=== PATIENT | female | born 1955 | race Caucasian/White ===

== ENCOUNTER 2017-11-23 13:13 | Inpatient (IN) | payer SELFPAY ==
[2017-11-23] MEDS: IOHEXOL 300 MG/ML 100ML VIAL. IV (14:00)
[2017-11-23 14:26] LABS: AGAP ISTAT 17 mmol/L (6-14); BUN ISTAT 9 mg/dL (8-26); CHLORIDE ISTAT 103 mmol/L (98-110); CREATININE ISTAT 0.6 mg/dL (0.5-1.4); GLUCOSE ISTAT 185 mg/dL (70-99); HEMATOCRIT ISTAT 48 % (36-40); HEMOGLOBIN ISTAT 16.3 g/dL (12-15); ION CA ISTAT 1.08 mmol/L (1.13-1.32); POTASSIUM ISTAT 4.1 mmol/L (3.5-5.0); SODIUM ISTAT 138 mmol/L (135-145); TOT CO2 ISTAT 23 mmol/L (23-32)
[2017-11-23] MEDS: fentaNYL PF VIAL 100 MCG/2 ML VIAL IV ×3 (15:47→20:27)
[2017-11-23] MEDS ORDERED: fentaNYL PF VIAL 100 MCG/2 ML VIAL IV (16:15)
[2017-11-23] MEDS ORDERED: ONDANSETRON PF 4 MG/2 ML VIAL. IV (16:15)
[2017-11-23] MEDS ORDERED: diphenhydrAMINE HCL 25 MG CAPSULE PO (16:30)
[2017-11-23] MEDS ORDERED: NICOTINE 21MG PATCH. TD (16:30)
[2017-11-23] MEDS ORDERED: ACETAMINOPHEN 500 MG TABLET PO (16:30)
[2017-11-23] MEDS: LIDOCAINE (700MG/PATCH) PATCH. TD (17:00)
[2017-11-23 18:15] LABS: POC GLUCOSE 145 mg/dL (70-99)
[2017-11-23] MEDS ORDERED: NON FORMULARY ITEM (Albuterol Sulfate (Proair Hfa Inhaler) 1 PUFF) INH (19:45)
[2017-11-23] MEDS ORDERED: ALBUTEROL SULFATE 2.5 MG/3 ML NEBU. NEB (19:45)
[2017-11-23] MEDS: ONDANSETRON PF 4 MG/2 ML VIAL. IV (20:27)
[2017-11-23] MEDS: GABAPENTIN 300 MG CAPSULE. PO (20:35)
[2017-11-23] MEDS: DULoxetine HCL 30 MG CAPSULE.DR PO (20:36)
[2017-11-23] MEDS: oxyCODONE/APAP 5/325 1 TAB TABLET PO (20:37)
[2017-11-23] MEDS: LISINOPRIL 5 MG TABLET. PO (20:37)
[2017-11-23] MEDS: ATORVASTATIN CALCIUM 20 MG TABLET PO (20:38)
[2017-11-23] MEDS: ERGOCALCIFEROL (VITAMIN D2) 50,000 UNIT CAPSULE. PO (21:00)
[2017-11-23 21:24] LABS: POC GLUCOSE 253 mg/dL (70-99)
[2017-11-23] MEDS: CYCLOBENZAPRINE 10 MG TABLET. PO (22:00)
[2017-11-24] MEDS: fentaNYL PF VIAL 100 MCG/2 ML VIAL IV ×5 (00:01→11:16)
[2017-11-24] MEDS: oxyCODONE/APAP 5/325 1 TAB TABLET PO ×4 (02:57→17:59)
[2017-11-24] MEDS: CYCLOBENZAPRINE 10 MG TABLET. PO ×3 (05:25→20:43)
[2017-11-24 08:10] LABS: POC GLUCOSE 178 mg/dL (70-99)
[2017-11-24] MEDS: GABAPENTIN 300 MG CAPSULE. PO ×2 (08:52→17:55)
[2017-11-24] MEDS: ASPIRIN CHEWABLE 81 MG TABLET. PO (08:52)
[2017-11-24] MEDS: LIDOCAINE (700MG/PATCH) PATCH. TD (09:00)
[2017-11-24] MEDS: IBUPROFEN 600 MG TABLET. PO ×2 (11:17→17:59)
[2017-11-24 12:16] LABS: POC GLUCOSE 162 mg/dL (70-99)
[2017-11-24 17:22] LABS: POC GLUCOSE 170 mg/dL (70-99)
[2017-11-24] MEDS ORDERED: CALCIUM CARBONATE 500 MG TAB.CHEW PO (17:30)
[2017-11-24] MEDS: DULoxetine HCL 30 MG CAPSULE.DR PO (17:55)
[2017-11-24] MEDS: ATORVASTATIN CALCIUM 20 MG TABLET PO (17:55)
[2017-11-24] MEDS: LISINOPRIL 5 MG TABLET. PO (20:44)
[2017-11-24 21:07] LABS: POC GLUCOSE 181 mg/dL (70-99)
[2017-11-25] MEDS: IBUPROFEN 600 MG TABLET. PO ×3 (03:47→19:27)
[2017-11-25] MEDS: oxyCODONE/APAP 5/325 1 TAB TABLET PO ×2 (03:48→09:16)
[2017-11-25] MEDS: CYCLOBENZAPRINE 10 MG TABLET. PO ×3 (05:39→22:11)
[2017-11-25 08:15] LABS: POC GLUCOSE 159 mg/dL (70-99)
[2017-11-25] MEDS: LIDOCAINE (700MG/PATCH) PATCH. TD (09:16)
[2017-11-25] MEDS: GABAPENTIN 300 MG CAPSULE. PO ×2 (09:17→17:27)
[2017-11-25] MEDS: ASPIRIN CHEWABLE 81 MG TABLET. PO (09:17)
[2017-11-25] MEDS ORDERED: MAGNESIUM HYDROXIDE 2,400 MG/30 ML ORAL.SUSP. PO (11:45)
[2017-11-25 11:58] LABS: POC GLUCOSE 177 mg/dL (70-99)
[2017-11-25] MEDS: POLYETHYLENE GLYCOL 3350 17 GM PACKET. PO (12:45)
[2017-11-25] MEDS: DOCUSATE SODIUM 100 MG CAPSULE. PO ×2 (12:46→21:00)
[2017-11-25] MEDS: oxyCODONE/APAP 10/325 1 TAB TABLET PO ×3 (12:46→21:00)
[2017-11-25 16:49] LABS: POC GLUCOSE 160 mg/dL (70-99)
[2017-11-25] MEDS: ATORVASTATIN CALCIUM 20 MG TABLET PO (17:27)
[2017-11-25] MEDS: DULoxetine HCL 30 MG CAPSULE.DR PO (17:27)
[2017-11-25] MEDS: LISINOPRIL 5 MG TABLET. PO (21:02)
[2017-11-26] MEDS: traMADol 50 MG TABLET PO (02:05)
[2017-11-26] MEDS: CYCLOBENZAPRINE 10 MG TABLET. PO (05:55)
[2017-11-26] MEDS: ASPIRIN CHEWABLE 81 MG TABLET. PO (09:37)
[2017-11-26] MEDS: oxyCODONE/APAP 10/325 1 TAB TABLET PO (09:37)
[2017-11-26] MEDS: IBUPROFEN 600 MG TABLET. PO (09:37)
[2017-11-26] MEDS: LIDOCAINE (700MG/PATCH) PATCH. TD (09:38)
[2017-11-26] MEDS: POLYETHYLENE GLYCOL 3350 17 GM PACKET. PO (09:38)
[2017-11-26] MEDS: DOCUSATE SODIUM 100 MG CAPSULE. PO (09:38)
[2017-11-26] MEDS: GABAPENTIN 300 MG CAPSULE. PO (09:38)
[2017-11-30] MEDS ORDERED: ERGOCALCIFEROL (VITAMIN D2) 50,000 UNIT CAPSULE. PO (09:00)
== END 2017-11-26 14:30 | disposition home or self-care (01) | DRG 552 ==
LOC: ER 13:13 → 4 NORTH 16:07
DX: S32.019A Unspecified fracture of first lumbar vertebra, initial encounter for closed fracture (principal); E11.42 Type 2 diabetes mellitus with diabetic polyneuropathy; Z68.41 Body mass index [BMI] 40.0-44.9, adult; S32.029A Unspecified fracture of second lumbar vertebra, initial encounter for closed fracture; E55.9 Vitamin D deficiency, unspecified; E66.01 Morbid (severe) obesity due to excess calories; E78.00 Pure hypercholesterolemia, unspecified; F17.210 Nicotine dependence, cigarettes, uncomplicated; I10 Essential (primary) hypertension; M81.0 Age-related osteoporosis without current pathological fracture; S33.5XXA Sprain of ligaments of lumbar spine, initial encounter; Z88.5 Allergy status to narcotic agent; Z88.0 Allergy status to penicillin; Z88.8 Allergy status to other drugs, medicaments and biological substances; W55.12XA Struck by horse, initial encounter; Y93.89 Activity, other specified; Y92.89 Other specified places as the place of occurrence of the external cause; Y99.8 Other external cause status
CPT/HCPCS: 72148; 74177; 80047; 82962; 96374; 96375; 97161-GP; 97165-GO; 99285; 99285-25; J2405; J3010; Q9967